=== PATIENT | male | born 1970 | race Two or more races ===

== ENCOUNTER 2024-09-10 09:39 | Inpatient (IN) | payer MEDICARE, OTHER ==
[~2024-09-10] VITALS: Ht 172.7 cm; Wt 85.3 kg
[~2024-09-10 09:39] MED LIST: AMLO2.5T96 PO; ATOR20TA PO; LACT10SO10 PO; MULT-1239 PO; MULT-248 PO; PANT-31 PO; RIFAX550 PO
[2024-09-10 10:00] VITALS: BP 107/69; PULSE 67; RESP 18; TEMP 98.6; O2SAT 100
[2024-09-10] MEDS ORDERED: ACETAMINOPHEN 325 MG TABLET PO PRN (11:00)
[2024-09-10] MEDS ORDERED: DEXTROSE 50%-WATER 25 GM/50 ML SYRINGE IVP PRN (11:15)
[2024-09-10] MEDS ORDERED: INSULIN LISPRO 100 UNITS/ML SQ SCH (11:30)
[2024-09-10] MEDS: INFLUENZA VIRUS VACCINE TVS (6MO+) 2024-25/PF 45 MCG/0.5 ML SYRINGE IM. ONE (13:10)
[2024-09-10] MEDS: PNEUMOCOCCAL VACCINE POLYVALENT 0.5 ML SYRINGE [PPSV23] IM. ONE (13:11)
[2024-09-10] MEDS: LACTULOSE 20 GM/30 ML SOLUTION UDCUP PO SCH (13:11)
[2024-09-10] MEDS: INSULIN LISPRO 100 UNITS/ML SQ PRN (13:12)
[2024-09-10 13:51] LABS: GLUCOMETER DEV NAME(LOC) 2WR.2B; GLUCOSE,POINT OF CARE 159 MG/DL (70-110)
[2024-09-10] MEDS: LANSOPRAZOLE 30 MG CAPSULE PO SCH (16:20)
[2024-09-10 18:20] LABS: GLUCOMETER DEV NAME(LOC) 2WR.1D; GLUCOSE,POINT OF CARE 120 MG/DL (70-110)
[2024-09-10] MEDS: CHOLESTYRAMINE PO SCH (21:05)
[2024-09-10] MEDS: SUCROSE PO SCH (21:05)
[2024-09-10] MEDS: RIFAXIMIN 550 MG TABLET PO SCH (21:06)
[2024-09-10] MEDS: URSODIOL 500 MG TABLET PO SCH (21:06)
[2024-09-10] MEDS: LevETIRAcetam 500 MG TABLET PO SCH (21:06)
[2024-09-10] MEDS: COLD CREAM, SKIN EMOLLIENT 340 GM JAR TP SCH (21:06)
[2024-09-10] MEDS: NYSTATIN 15 GM POWDER BOTTLE TP SCH (21:06)
[2024-09-10 21:09] VITALS: BP 90/53; PULSE 53; RESP 18; TEMP 98.8; O2SAT 98
[2024-09-10 21:16] VITALS: O2SAT 98
[2024-09-10] MEDS: ETHYL ALCOHOL 62% ANTISEPTIC NASAL SANITIZER 0.6 ML AMPUL NASAL SCH (21:32)
[2024-09-10 23:55] LABS: GLUCOMETER DEV NAME(LOC) 2WR.2B; GLUCOSE,POINT OF CARE 149 MG/DL (70-110)
[2024-09-11 07:26] LABS: GLUCOMETER DEV NAME(LOC) 2WR.2B; GLUCOSE,POINT OF CARE 85 MG/DL (70-110)
[2024-09-11] MEDS: PROPRANOLOL HCL 60 MG ER CAPSULE PO SCH (07:39)
[2024-09-11] MEDS: SPIRONOLACTONE 50 MG TABLET PO SCH (07:40)
[2024-09-11] MEDS: FUROSEMIDE 40 MG TABLET PO SCH (07:45)
[2024-09-11] MEDS: ASPIRIN 81 MG CHEWABLE TABLET PO SCH (07:48)
[2024-09-11 08:05] VITALS: BP 109/58; PULSE 66; RESP 19; TEMP 98.3; O2SAT 98
[2024-09-11] MEDS: INSULIN GLARGINE,HUM.REC.ANLOG 100 UNITS/ML SQ SCH (08:32)
[2024-09-11 08:39] LABS: BASOPHILS % (AUTO) 0.2 % (0.0-2.0); EOSINOPHILS % (AUTO) 5.8 % (1.0-6.0); HEMATOCRIT 39.8 % (41-53); HEMOGLOBIN 13.8 g/dL (13.5-17.5); LYMPHOCYTES # (AUTO) 0.9 K/uL (1.0-4.8); MEAN CORPUSCULAR HEMOGLOBIN 38.3 pg (26.0-34.0); MEAN CORPUSCULAR HGB CONC 34.6 G/dL (31.0-37.0); MEAN CORPUSCULAR VOLUME 111 fL (80-100); MONOCYTES # (AUTO) 0.7 K/uL (0.1-1.0); MONOCYTES % (AUTO) 12.6 % (2.0-9.0); NEUTROPHILS # (AUTO) 3.3 K/uL (1.8-7.7); NEUTROPHILS % (AUTO) 64.4 % (40.0-70.0); PLATELET COUNT (AUTO) 77 K/uL (150-450); RED BLOOD CELL COUNT(AUTO) 3.59 MIL/uL (4.50-5.90); RED CELL DISTRIBUTION WIDTH 17.3 % (11.5-14.5); WHITE BLOOD COUNT (AUTO) 5.2 K/uL (4.5-11.0)
[2024-09-11] MEDS ORDERED: INSULIN GLARGINE,HUM.REC.ANLOG 100 UNITS/ML SQ SCH (09:00)
[2024-09-11 09:21] LABS: ALANINE AMINOTRANSFERASE 125 U/L (12-78); ALBUMIN 1.1 g/dL (3.4-5.0); ALKALINE PHOSPHATASE 367 U/L (46-116); ANION GAP 3 mmol/L (8-16); ASPARTATE AMINOTRANSFERASE 143 U/L (15-37); BILIRUBIN,TOTAL 11.7 mg/dL (0.1-1.0); CALCIUM, TOTAL 8.1 mg/dL (8.8-10.5); CARBON DIOXIDE 29 mmol/L (22-29); CHLORIDE 109 mmol/L (98-107); CREATINE KINASE, TOTAL ONLY 101 U/L (39-308); CREATININE 0.65 mg/dL (0.60-1.30); GLOMERULAR FILTR. RATE CALC > 60 mL/min (>60); GLUCOSE,RANDOM 98 mg/dL (70-110); POTASSIUM 4.2 mmol/L (3.5-5.1); SODIUM SERUM 140 mmol/L (136-145); TOTAL PROTEIN, SERUM 6.3 g/dL (6.4-8.2); UREA NITROGEN, BLOOD 9 mg/dL (7-18)
[2024-09-11 11:18] LABS: PROTHROMBIN TIME 24.5 SEC (9.4-11.6)
[2024-09-11 11:40] LABS: GLUCOMETER DEV NAME(LOC) 2WR.2B; GLUCOSE,POINT OF CARE 209 MG/DL (70-110)
[2024-09-11 12:34] VITALS: O2SAT 98
[2024-09-11] MEDS: LACTULOSE 20 GM/30 ML SOLUTION UDCUP PO SCH (16:27)
[2024-09-11 17:21] LABS: GLUCOMETER DEV NAME(LOC) 2WR.2B; GLUCOSE,POINT OF CARE 234 MG/DL (70-110)
[2024-09-11 22:00] LABS: GLUCOMETER DEV NAME(LOC) 2WR.2B; GLUCOSE,POINT OF CARE 213 MG/DL (70-110)
[2024-09-11 22:12] VITALS: BP 93/51; PULSE 53; RESP 18; TEMP 97.6; O2SAT 100
[2024-09-12 03:56] VITALS: O2SAT 100
[2024-09-12 07:05] LABS: GLUCOMETER DEV NAME(LOC) 2WR.2B; GLUCOSE,POINT OF CARE 139 MG/DL (70-110)
[2024-09-12 08:05] VITALS: BP 118/65; PULSE 65; RESP 18; TEMP 98; O2SAT 99
[2024-09-12] MEDS: MULTIVITAMINS WITH MINERALS, THERAPEUTIC TABLET PO SCH (08:05)
[2024-09-12 11:45] LABS: GLUCOMETER DEV NAME(LOC) 2WR.1D; GLUCOSE,POINT OF CARE 186 MG/DL (70-110)
[2024-09-12 13:15] VITALS: O2SAT 98
[2024-09-12 16:01] LABS: GLUCOMETER DEV NAME(LOC) 2WR.1D; GLUCOSE,POINT OF CARE 246 MG/DL (70-110)
[2024-09-12 20:02] VITALS: BP 115/60; PULSE 63; RESP 18; TEMP 98.6; O2SAT 97
[2024-09-12 21:15] LABS: GLUCOMETER DEV NAME(LOC) 2WR.1D; GLUCOSE,POINT OF CARE 159 MG/DL (70-110)
[2024-09-12 21:35] VITALS: O2SAT 97
[2024-09-13 06:45] LABS: GLUCOMETER DEV NAME(LOC) 2WR.1D; GLUCOSE,POINT OF CARE 110 MG/DL (70-110)
[2024-09-13 08:00] VITALS: BP 103/60; PULSE 60; RESP 19; TEMP 98.7; O2SAT 99
[2024-09-13 13:05] LABS: GLUCOMETER DEV NAME(LOC) 2WR.1D; GLUCOSE,POINT OF CARE 154 MG/DL (70-110)
[2024-09-13 17:10] LABS: GLUCOMETER DEV NAME(LOC) 2WR.1D; GLUCOSE,POINT OF CARE 146 MG/DL (70-110)
[2024-09-13 20:03] VITALS: BP 98/58; PULSE 56; RESP 18; TEMP 98.6; O2SAT 97
[2024-09-13 21:56] LABS: GLUCOMETER DEV NAME(LOC) 2WR.1D; GLUCOSE,POINT OF CARE 164 MG/DL (70-110)
[2024-09-13 22:00] VITALS: O2SAT 99
[2024-09-14 06:55] LABS: GLUCOMETER DEV NAME(LOC) 2WR.1D; GLUCOSE,POINT OF CARE 110 MG/DL (70-110)
[2024-09-14 08:05] VITALS: BP 118/64; PULSE 73; RESP 18; TEMP 98; O2SAT 98
[2024-09-14 09:51] VITALS: O2SAT 98
[2024-09-14 11:00] VITALS: BP 110/65; PULSE 68; RESP 18; TEMP 98.4; O2SAT 98
[2024-09-14 11:06] LABS: GLUCOMETER DEV NAME(LOC) 2WR.1D; GLUCOSE,POINT OF CARE 198 MG/DL (70-110)
[2024-09-14 16:36] LABS: GLUCOMETER DEV NAME(LOC) 2WR.1D; GLUCOSE,POINT OF CARE 192 MG/DL (70-110)
[2024-09-14 20:11] VITALS: BP 98/54; PULSE 55; RESP 18; TEMP 98.1; O2SAT 100
[2024-09-14 22:51] LABS: GLUCOMETER DEV NAME(LOC) 2WR.1D; GLUCOSE,POINT OF CARE 186 MG/DL (70-110)
[2024-09-15 06:40] LABS: GLUCOMETER DEV NAME(LOC) 2WR.1D; GLUCOSE,POINT OF CARE 120 MG/DL (70-110)
[2024-09-15 08:00] VITALS: BP 101/56; PULSE 66; RESP 18; TEMP 97.8; O2SAT 98
[2024-09-15 12:06] LABS: GLUCOMETER DEV NAME(LOC) 2WR.1D; GLUCOSE,POINT OF CARE 187 MG/DL (70-110)
[2024-09-15 17:45] LABS: GLUCOMETER DEV NAME(LOC) 2WR.1D; GLUCOSE,POINT OF CARE 163 MG/DL (70-110)
[2024-09-15 20:30] VITALS: BP 99/57; PULSE 63; RESP 18; TEMP 98.2; O2SAT 99
[2024-09-15 22:27] VITALS: O2SAT 99
[2024-09-16 00:41] LABS: GLUCOMETER DEV NAME(LOC) 2WR.1D; GLUCOSE,POINT OF CARE 158 MG/DL (70-110)
[2024-09-16 06:12] LABS: BASOPHILS % (AUTO) 0.4 % (0.0-2.0); EOSINOPHILS % (AUTO) 5.1 % (1.0-6.0); HEMATOCRIT 35.7 % (41-53); HEMOGLOBIN 12.5 g/dL (13.5-17.5); LYMPHOCYTES % (AUTO) 20.1 % (22.0-44.0); MEAN CORPUSCULAR HEMOGLOBIN 38.6 pg (26.0-34.0); MEAN CORPUSCULAR HGB CONC 35.1 G/dL (31.0-37.0); MEAN CORPUSCULAR VOLUME 110 fL (80-100); MONOCYTES # (AUTO) 0.7 K/uL (0.1-1.0); NEUTROPHILS # (AUTO) 3.1 K/uL (1.8-7.7); NEUTROPHILS % (AUTO) 61.4 % (40.0-70.0); PLATELET COUNT (AUTO) 75 K/uL (150-450); RED BLOOD CELL COUNT(AUTO) 3.25 MIL/uL (4.50-5.90); RED CELL DISTRIBUTION WIDTH 16.9 % (11.5-14.5); WHITE BLOOD COUNT (AUTO) 5.1 K/uL (4.5-11.0)
[2024-09-16 06:20] LABS: ANION GAP 6 mmol/L (8-16); CALCIUM, TOTAL 7.9 mg/dL (8.8-10.5); CARBON DIOXIDE 25 mmol/L (22-29); CHLORIDE 106 mmol/L (98-107); CREATININE 0.74 mg/dL (0.60-1.30); GLOMERULAR FILTR. RATE CALC > 60 mL/min (>60); GLUCOSE,RANDOM 100 mg/dL (70-110); POTASSIUM 3.8 mmol/L (3.5-5.1); SODIUM SERUM 137 mmol/L (136-145); UREA NITROGEN, BLOOD 9 mg/dL (7-18)
[2024-09-16 06:21] LABS: HEMOGLOBIN A1C 6.7 % (3.8-5.6)
[2024-09-16 06:31] LABS: GLUCOMETER DEV NAME(LOC) 2WR.1D; GLUCOSE,POINT OF CARE 102 MG/DL (70-110)
[2024-09-16 07:39] LABS: RBC MORPHOLOGY COMMENT ABNORMAL RBC MORPH
[2024-09-16] MEDS: SPIRONOLACTONE 25 MG TABLET PO SCH (07:53)
[2024-09-16 08:05] VITALS: BP 118/63; PULSE 68; RESP 18; TEMP 98.2; O2SAT 98
[2024-09-16 10:24] VITALS: O2SAT 98
[2024-09-16 12:20] LABS: GLUCOMETER DEV NAME(LOC) 2WR.1D; GLUCOSE,POINT OF CARE 163 MG/DL (70-110)
[2024-09-16 16:40] LABS: GLUCOMETER DEV NAME(LOC) 2WR.1D; GLUCOSE,POINT OF CARE 141 MG/DL (70-110)
[2024-09-16 19:39] VITALS: BP 94/58; PULSE 61; RESP 18; TEMP 98.1; O2SAT 100
[2024-09-16 21:35] LABS: GLUCOMETER DEV NAME(LOC) 2WR.1D; GLUCOSE,POINT OF CARE 185 MG/DL (70-110)
[2024-09-17 00:36] VITALS: O2SAT 100
[2024-09-17 06:45] LABS: GLUCOMETER DEV NAME(LOC) 2WR.2B; GLUCOSE,POINT OF CARE 97 MG/DL (70-110)
[2024-09-17 08:00] VITALS: BP 102/62; PULSE 64; RESP 18; TEMP 98.4; O2SAT 98
[2024-09-17 08:15] VITALS: BP 100/58; PULSE 64; RESP 18
[2024-09-17 09:45] VITALS: BP 97/55; PULSE 55; RESP 18
[2024-09-17 11:55] LABS: GLUCOMETER DEV NAME(LOC) 2WR.1D; GLUCOSE,POINT OF CARE 201 MG/DL (70-110)
[2024-09-17 17:11] LABS: GLUCOMETER DEV NAME(LOC) 2WR.2B; GLUCOSE,POINT OF CARE 135 MG/DL (70-110)
[2024-09-17 20:00] VITALS: BP 100/56; PULSE 66; RESP 18; TEMP 98; O2SAT 96
[2024-09-17 23:01] LABS: GLUCOMETER DEV NAME(LOC) 2WR.1D; GLUCOSE,POINT OF CARE 236 MG/DL (70-110)
[2024-09-18 07:11] LABS: GLUCOMETER DEV NAME(LOC) 2WR.2B; GLUCOSE,POINT OF CARE 101 MG/DL (70-110)
[2024-09-18 07:30] VITALS: BP 107/58; PULSE 68; RESP 18; TEMP 98.1; O2SAT 100
[2024-09-18 08:00] VITALS: O2SAT 100
[2024-09-18 08:10] VITALS: BP 100/57; PULSE 63; RESP 18
[2024-09-18] MEDS: MetFORMIN HCL 500 MG TABLET PO SCH (08:53)
[2024-09-18 12:15] LABS: GLUCOMETER DEV NAME(LOC) 2WR.1D; GLUCOSE,POINT OF CARE 196 MG/DL (70-110)
[2024-09-18 18:16] LABS: GLUCOMETER DEV NAME(LOC) 2WR.1D; GLUCOSE,POINT OF CARE 188 MG/DL (70-110)
[2024-09-18 20:00] VITALS: BP 100/58; PULSE 74; RESP 18; TEMP 98.2; O2SAT 99
[2024-09-18 21:45] LABS: GLUCOMETER DEV NAME(LOC) 2WR.2B; GLUCOSE,POINT OF CARE 162 MG/DL (70-110)
[2024-09-19 07:15] LABS: GLUCOMETER DEV NAME(LOC) 2WR.1D; GLUCOSE,POINT OF CARE 76 MG/DL (70-110)
[2024-09-19 08:11] VITALS: BP 103/56; PULSE 70; RESP 18; TEMP 98.2; O2SAT 97
[2024-09-19 12:30] LABS: GLUCOMETER DEV NAME(LOC) 2WR.1D; GLUCOSE,POINT OF CARE 193 MG/DL (70-110)
[2024-09-19 17:21] LABS: GLUCOMETER DEV NAME(LOC) 2WR.2B; GLUCOSE,POINT OF CARE 107 MG/DL (70-110)
[2024-09-19 20:20] VITALS: BP 89/47; PULSE 57; RESP 18; TEMP 98.6; O2SAT 98
[2024-09-19 20:30] VITALS: BP 90/57; PULSE 61
[2024-09-19 22:11] LABS: GLUCOMETER DEV NAME(LOC) 2WR.2B; GLUCOSE,POINT OF CARE 113 MG/DL (70-110)
[2024-09-19 23:49] VITALS: O2SAT 98
[2024-09-20 07:06] LABS: GLUCOMETER DEV NAME(LOC) 2WR.2B; GLUCOSE,POINT OF CARE 93 MG/DL (70-110)
[2024-09-20 08:00] VITALS: BP 98/62; PULSE 60; RESP 18; TEMP 97.9; O2SAT 98
[2024-09-20 11:36] LABS: GLUCOMETER DEV NAME(LOC) 2WR.1D; GLUCOSE,POINT OF CARE 142 MG/DL (70-110)
[2024-09-20 11:48] LABS: BASOPHILS % (AUTO) 0.2 % (0.0-2.0); EOSINOPHILS % (AUTO) 3.8 % (1.0-6.0); HEMATOCRIT 37.6 % (41-53); HEMOGLOBIN 12.8 g/dL (13.5-17.5); LYMPHOCYTES % (AUTO) 16.1 % (22.0-44.0); MEAN CORPUSCULAR HEMOGLOBIN 38.1 pg (26.0-34.0); MEAN CORPUSCULAR HGB CONC 34.1 G/dL (31.0-37.0); MEAN CORPUSCULAR VOLUME 112 fL (80-100); MONOCYTES # (AUTO) 0.9 K/uL (0.1-1.0); MONOCYTES % (AUTO) 14.9 % (2.0-9.0); NEUTROPHILS # (AUTO) 4.1 K/uL (1.8-7.7); PLATELET COUNT (AUTO) 72 K/uL (150-450); RED BLOOD CELL COUNT(AUTO) 3.37 MIL/uL (4.50-5.90); RED CELL DISTRIBUTION WIDTH 17.4 % (11.5-14.5); WHITE BLOOD COUNT (AUTO) 6.3 K/uL (4.5-11.0)
[2024-09-20 11:50] LABS: RBC MORPHOLOGY COMMENT ABNORMAL RBC MORPH
[2024-09-20 12:17] LABS: ALANINE AMINOTRANSFERASE 62 U/L (12-78); ALKALINE PHOSPHATASE 271 U/L (46-116); ANION GAP 3 mmol/L (8-16); ASPARTATE AMINOTRANSFERASE 95 U/L (15-37); BILIRUBIN,TOTAL 12.9 mg/dL (0.1-1.0); CALCIUM, TOTAL 8.2 mg/dL (8.8-10.5); CARBON DIOXIDE 26 mmol/L (22-29); CHLORIDE 105 mmol/L (98-107); CREATININE 0.89 mg/dL (0.60-1.30); GLOMERULAR FILTR. RATE CALC > 60 mL/min (>60); GLUCOSE,RANDOM 133 mg/dL (70-110); POTASSIUM 4.3 mmol/L (3.5-5.1); SODIUM SERUM 134 mmol/L (136-145); TOTAL PROTEIN, SERUM 5.9 g/dL (6.4-8.2); UREA NITROGEN, BLOOD 8 mg/dL (7-18)
[2024-09-20 18:00] LABS: GLUCOMETER DEV NAME(LOC) 2WR.2B; GLUCOSE,POINT OF CARE 94 MG/DL (70-110)
[2024-09-20 20:00] VITALS: BP 103/56; PULSE 64; RESP 18; TEMP 98.1; O2SAT 98
[2024-09-21 03:10] LABS: GLUCOMETER DEV NAME(LOC) 2WR.1D; GLUCOSE,POINT OF CARE 98 MG/DL (70-110)
[2024-09-21] MEDS ORDERED: METF-1211 PO ×2 (04:34→10:08)
[2024-09-21] MEDS ORDERED: SPIR-37 PO ×2 (04:34→10:08)
[2024-09-21] MEDS ORDERED: LACT10SO10 PO ×2 (04:35→10:08)
[2024-09-21] MEDS ORDERED: INSLAN SQ ×2 (04:37→10:08)
[2024-09-21] MEDS ORDERED: PROP60CA38 PO (04:39)
[2024-09-21] MEDS ORDERED: FURO40TA6 PO (04:40)
[2024-09-21] MEDS ORDERED: ALBO180CR TP (04:40)
[2024-09-21] MEDS ORDERED: CHOL4PAC8 PO ×2 (04:42→10:08)
[2024-09-21] MEDS ORDERED: URSO500T10 PO (04:42)
[2024-09-21] MEDS ORDERED: LEVE-71 PO ×2 (04:44→10:08)
[2024-09-21] MEDS ORDERED: LANS-78 PO ×2 (04:45→10:08)
[2024-09-21] MEDS ORDERED: NYST15PO3 TP (04:45)
[2024-09-21 07:20] LABS: GLUCOMETER DEV NAME(LOC) 2WR.1D; GLUCOSE,POINT OF CARE 134 MG/DL (70-110)
[2024-09-21 08:05] VITALS: BP 118/64; PULSE 73; RESP 18; TEMP 98.2; O2SAT 98
[2024-09-21] MEDS ORDERED: INSU100V SQ (10:08)
[2024-09-21] MEDS ORDERED: URSO500T5 PO (10:08)
[2024-09-21] MEDS ORDERED: RIFAX550 PO (10:08)
[2024-09-21] MEDS ORDERED: MULT-1303 PO (10:08)
[2024-09-21] MEDS ORDERED: FURO40TA5 PO (10:08)
[2024-09-21] MEDS ORDERED: PROP60CA31 PO (10:08)
[2024-09-21 10:30] VITALS: O2SAT 98
[2024-09-21 12:10] LABS: GLUCOMETER DEV NAME(LOC) 2WR.2B; GLUCOSE,POINT OF CARE 134 MG/DL (70-110)
== END 2024-09-21 12:48 | disposition home health service (06) | DRG 57 ==
LOC: 2WR 09:53
PROVIDERS: ADMIT Physical Medicine & Rehabilitation; ATTEND Physical Medicine & Rehabilitation
DX: I69.354 Hemiplegia and hemiparesis following cerebral infarction affecting left non-dominant side (principal); D68.9 Coagulation defect, unspecified; E46 Unspecified protein-calorie malnutrition; E87.1 Hypo-osmolality and hyponatremia; R53.1 Weakness; G40.909 Epilepsy, unspecified, not intractable, without status epilepticus; K74.60 Unspecified cirrhosis of liver; Z79.4 Long term (current) use of insulin; E11.9 Type 2 diabetes mellitus without complications; M48.061 Spinal stenosis, lumbar region without neurogenic claudication; K76.82 Hepatic encephalopathy; D53.9 Nutritional anemia, unspecified; I10 Essential (primary) hypertension; F32.A Depression, unspecified; K76.9 Liver disease, unspecified; R41.89 Other symptoms and signs involving cognitive functions and awareness; R53.81 Other malaise; E78.5 Hyperlipidemia, unspecified; D69.6 Thrombocytopenia, unspecified; Z74.09 Other reduced mobility; F43.10 Post-traumatic stress disorder, unspecified; K75.81 Nonalcoholic steatohepatitis (NASH); Z74.1 Need for assistance with personal care; Z79.82 Long term (current) use of aspirin; Z82.49 Family history of ischemic heart disease and other diseases of the circulatory system; Z83.3 Family history of diabetes mellitus; Z68.28 Body mass index [BMI] 28.0-28.9, adult; D63.8 Anemia in other chronic diseases classified elsewhere
CPT/HCPCS: 76705; 80048; 80053; 82140; 82550; 82962; 83036; 83735; 85025; 85610; 87081; 87481; 92507; 92523; 93970; 97110; 97112; 97116; 97163; 97167; 97530; 97535; 99366; J1815

== ENCOUNTER 2024-09-29 21:30 | Inpatient (IN) | payer MEDICARE, OTHER ==
[~2024-09-29] VITALS: Ht 167.6 cm; Wt 82.9 kg
[~2024-09-29 21:30] MED LIST changes: -AMLO2.5T96 PO; -ATOR20TA PO; +CHOL4PAC8 PO; +FURO40TA5 PO; +FURO40TA6 PO; +INSLAN SQ; +INSU100V SQ; +LANS-78 PO; +LEVE-71 PO; +METF-1211 PO; +MULT-1303 PO; -MULT-248 PO; +NYST15PO3 TP; -PANT-31 PO; +PROP60CA31 PO; +PROP60CA38 PO; +SPIR-37 PO; +URSO500T10 PO; +URSO500T5 PO
[2024-09-29] MEDS ORDERED: IOHEXOL 350 MG/ML 100 ML VIAL ONE (22:00)
[2024-09-29] MEDS ORDERED: SODIUM CHLORIDE 0.9% 100 ML ONE (22:00)
[2024-09-29] MEDS ORDERED: 0.9% SODIUM CHLORIDE 10 ML SYRINGE IVP ONE (22:01)
[2024-09-29 22:17] LABS: BASOPHILS % (AUTO) 0.3 % (0.0-2.0); EOSINOPHILS % (AUTO) 1.9 % (1.0-6.0); HEMATOCRIT 35.4 % (41-53); HEMOGLOBIN 12.3 g/dL (13.5-17.5); LYMPHOCYTES # (AUTO) 0.9 K/uL (1.0-4.8); LYMPHOCYTES % (AUTO) 11.5 % (22.0-44.0); MEAN CORPUSCULAR HGB CONC 34.6 G/dL (31.0-37.0); MEAN CORPUSCULAR VOLUME 110 fL (80-100); MONOCYTES # (AUTO) 1.1 K/uL (0.1-1.0); NEUTROPHILS % (AUTO) 73.3 % (40.0-70.0); RED BLOOD CELL COUNT(AUTO) 3.23 MIL/uL (4.50-5.90); RED CELL DISTRIBUTION WIDTH 16.9 % (11.5-14.5); WHITE BLOOD COUNT (AUTO) 8.2 K/uL (4.5-11.0)
[2024-09-29 22:23] LABS: ANION GAP 5 mmol/L (8-16); CALCIUM, TOTAL 8.3 mg/dL (8.8-10.5); CARBON DIOXIDE 24 mmol/L (22-29); CHLORIDE 104 mmol/L (98-107); CREATININE 0.87 mg/dL (0.60-1.30); GLOMERULAR FILTR. RATE CALC > 60 mL/min (>60); GLUCOSE,RANDOM 271 mg/dL (70-110); POTASSIUM 5.8 mmol/L (3.5-5.1); SODIUM SERUM 133 mmol/L (136-145); UREA NITROGEN, BLOOD 12 mg/dL (7-18)
[2024-09-29 22:28] LABS: ALANINE AMINOTRANSFERASE 47 U/L (12-78); ALBUMIN 1.1 g/dL (3.4-5.0); ALKALINE PHOSPHATASE 358 U/L (46-116); ASPARTATE AMINOTRANSFERASE 118 U/L (15-37); BILIRUBIN,TOTAL 15.3 mg/dL (0.1-1.0); TOTAL PROTEIN, SERUM 6.4 g/dL (6.4-8.2)
[2024-09-29 22:32] LABS: TROPONIN I-HIGH SENSITIVITY 7 ng/L (<76)
[2024-09-29 22:36] LABS: PROTHROMBIN TIME 23.8 SEC (9.4-11.6)
[2024-09-29 22:37] LABS: PLATELET COUNT (AUTO) 90 K/uL (150-450); RBC MORPHOLOGY COMMENT ABNORMAL RBC MORPH
[2024-09-29 23:11] LABS: APPEARANCE,URINE CLEAR (CLEAR); BILIRUBIN,URINE LARGE (NEGATIVE); COLOR,URINE DARK YELLOW (YELLOW); GLUCOSE, URINE (UA) >=1000 mg/dL (NEGATIVE); KETONES,URINE NEGATIVE (NEGATIVE); LEUKOCYTE ESTERASE ,URINE NEGATIVE (NEGATIVE); NITRATE,URINE NEGATIVE (NEGATIVE); OCCULT BLOOD,URINE TRACE (NEGATIVE); PH,URINE 6.5 (5.0-8.0); PH,URINE DRUG SCREEN 6.5 (5.0-8.0); PROTEIN,URINE NEGATIVE (NEGATIVE); SPECIFIC GRAVITIY, URINE 1.037 (1.003-1.030); UROBILINOGEN,URINE <=1.0 mg/dL (<=1.0)
[2024-09-29 23:22] LABS: ALCOHOL, URINE DRUG SCREEN NEGATIVE (NEGATIVE); AMPHET/METH SCREEN,URINE NEGATIVE (NEGATIVE); BARBITURATE SCREEN, URINE NEGATIVE (NEGATIVE); BENZODIAZEPINES SCREEN,URINE NEGATIVE (NEGATIVE); CANNABINOID SCREEN,URINE NEGATIVE (NEGATIVE); COCAINE SCREEN,URINE NEGATIVE (NEGATIVE); METHADONE SCREEN, URINE NEGATIVE (NEGATIVE); OPIATE SCREEN,URINE NEGATIVE (NEGATIVE); PHENCYCLIDINE SCREEN,URINE NEGATIVE (NEGATIVE)
[2024-09-29 23:24] LABS: BACTERIA,URINE Few /HPF (None Seen); SQUAMOUS EPITHELIAL CELL,UR Few /LPF (None Seen); WBC,URINE 0-2 /HPF (0-5)
[2024-09-29] MEDS ORDERED: OxyCODONE HCL/ACETAMINOPHEN 5-325 MG TABLET PO PRN ×2 (23:45)
[2024-09-29] MEDS ORDERED: ONDANSETRON HCL 4 MG/2 ML VIAL IVP PRN (23:45)
[2024-09-29] MEDS ORDERED: 0.9% SODIUM CHLORIDE 10 ML SYRINGE IVP PRN (23:45)
[2024-09-30] MEDS: LACTULOSE 20 GM/30 ML SOLUTION UDCUP PO ONE (00:38)
[2024-09-30] MEDS: LACTULOSE 200 GM/300 ML RECTAL SOLUTION PR ONE (00:38)
[2024-09-30] MEDS: SODIUM ZIRCONIUM CYCLOSILICATE 5 GM POWDER PACKET PO ONE (00:38)
[2024-09-30 04:22] LABS: BASOPHILS % (AUTO) 0.3 % (0.0-2.0); EOSINOPHILS % (AUTO) 1.7 % (1.0-6.0); HEMATOCRIT 36.8 % (41-53); HEMOGLOBIN 12.9 g/dL (13.5-17.5); LYMPHOCYTES % (AUTO) 11.4 % (22.0-44.0); MEAN CORPUSCULAR HEMOGLOBIN 38.2 pg (26.0-34.0); MEAN CORPUSCULAR HGB CONC 35.2 G/dL (31.0-37.0); MEAN CORPUSCULAR VOLUME 109 fL (80-100); MONOCYTES # (AUTO) 0.8 K/uL (0.1-1.0); MONOCYTES % (AUTO) 9.7 % (2.0-9.0); NEUTROPHILS # (AUTO) 6.7 K/uL (1.8-7.7); NEUTROPHILS % (AUTO) 76.9 % (40.0-70.0); PLATELET COUNT (AUTO) 83 K/uL (150-450); RED BLOOD CELL COUNT(AUTO) 3.39 MIL/uL (4.50-5.90); RED CELL DISTRIBUTION WIDTH 16.8 % (11.5-14.5); WHITE BLOOD COUNT (AUTO) 8.7 K/uL (4.5-11.0)
[2024-09-30 04:30] LABS: ANION GAP 5 mmol/L (8-16); CALCIUM, TOTAL 8.2 mg/dL (8.8-10.5); CARBON DIOXIDE 24 mmol/L (22-29); CHLORIDE 105 mmol/L (98-107); CREATININE 0.85 mg/dL (0.60-1.30); GLOMERULAR FILTR. RATE CALC > 60 mL/min (>60); GLUCOSE,RANDOM 240 mg/dL (70-110); SODIUM SERUM 134 mmol/L (136-145); UREA NITROGEN, BLOOD 11 mg/dL (7-18)
[2024-09-30 04:45] LABS: TROPONIN I-HIGH SENSITIVITY 10 ng/L (<76)
[2024-09-30 04:55] LABS: RBC MORPHOLOGY COMMENT ABNORMAL RBC MORPH
[2024-09-30 08:45] VITALS: BP 101/49; PULSE 89; RESP 18; TEMP 98.2; O2SAT 100
[2024-09-30] MEDS: DOCUSATE SODIUM 100 MG CAPSULE PO SCH (09:00)
[2024-09-30] MEDS: PANTOPRAZOLE SODIUM 40 MG/VIAL IVP SCH (10:11)
[2024-09-30] MEDS: LACTULOSE 20 GM/30 ML SOLUTION UDCUP PO SCH (10:12)
[2024-09-30 10:27] LABS: TROPONIN I-HIGH SENSITIVITY 11 ng/L (<76)
[2024-09-30 11:15] VITALS: BP 109/74; PULSE 97; RESP 18; TEMP 98; O2SAT 95
[2024-09-30 15:24] VITALS: BP 116/64; PULSE 84; RESP 19; TEMP 97.8; O2SAT 99
[2024-09-30 20:08] VITALS: BP 115/48; PULSE 81; RESP 18; TEMP 97.9; O2SAT 97
[2024-10-01 00:25] VITALS: BP 104/62; PULSE 66; RESP 18; TEMP 98; O2SAT 100
[2024-10-01 05:24] VITALS: BP_SYST 112; BP_DIAS 62; BP_DIAS 66; PULSE 72; RESP 18; TEMP 98.1; O2SAT 99
[2024-10-01 07:40] VITALS: BP 101/56; PULSE 69; RESP 19; TEMP 97.8; O2SAT 99
[2024-10-01 11:40] VITALS: BP 101/56; PULSE 75; RESP 19; TEMP 98; O2SAT 96
[2024-10-01 14:08] LABS: BAND NEUTROPHILS % (MANUAL) 0 % (0-5)
[2024-10-01 14:12] LABS: HEMATOCRIT 36.5 % (41-53); HEMOGLOBIN 12.6 g/dL (13.5-17.5); MEAN CORPUSCULAR HEMOGLOBIN 37.5 pg (26.0-34.0); MEAN CORPUSCULAR HGB CONC 34.6 G/dL (31.0-37.0); MEAN CORPUSCULAR VOLUME 108 fL (80-100); PLATELET COUNT (AUTO) 73 K/uL (150-450); RED BLOOD CELL COUNT(AUTO) 3.37 MIL/uL (4.50-5.90); RED CELL DISTRIBUTION WIDTH 17.4 % (11.5-14.5); WHITE BLOOD COUNT (AUTO) 7.5 K/uL (4.5-11.0)
[2024-10-01 14:25] LABS: ALANINE AMINOTRANSFERASE 43 U/L (12-78); ALKALINE PHOSPHATASE 283 U/L (46-116); ANION GAP 5 mmol/L (8-16); ASPARTATE AMINOTRANSFERASE 94 U/L (15-37); BILIRUBIN,TOTAL 13.1 mg/dL (0.1-1.0); CALCIUM, TOTAL 8.4 mg/dL (8.8-10.5); CARBON DIOXIDE 24 mmol/L (22-29); CHLORIDE 108 mmol/L (98-107); CREATININE 0.83 mg/dL (0.60-1.30); GLOMERULAR FILTR. RATE CALC > 60 mL/min (>60); GLUCOSE,RANDOM 84 mg/dL (70-110); POTASSIUM 3.6 mmol/L (3.5-5.1); SODIUM SERUM 137 mmol/L (136-145); TOTAL PROTEIN, SERUM 5.8 g/dL (6.4-8.2); UREA NITROGEN, BLOOD 15 mg/dL (7-18)
[2024-10-01 15:09] LABS: EOSINOPHILS % (MANUAL) 3 % (1-6); LYMPHOCYTES % (MANUAL) 9 % (22-44); MONOCYTES % (MANUAL) 8 % (2-9); PLATELET MORPHOLOGY COMMENT LARGE PLTS PRESENT; SEGMENTED NEUTROPHILS % 80 % (40-70); TOTAL CELLS COUNTED 100
[2024-10-01 15:41] VITALS: BP 98/47; PULSE 68; RESP 18; TEMP 97.9; O2SAT 98
[2024-10-01 20:54] VITALS: BP 119/69; PULSE 71; RESP 18; TEMP 97.6; O2SAT 97
[2024-10-02] VITALS (8 sets, daily range): BP systolic 92–119; BP diastolic 45–71; PULSE 70–76; RESP 16–20; TEMP 97.6–98.3; O2SAT 96–100
[2024-10-02 06:31] LABS: BASOPHILS % (AUTO) 0.7 % (0.0-2.0); EOSINOPHILS % (AUTO) 2.3 % (1.0-6.0); HEMATOCRIT 37.8 % (41-53); HEMOGLOBIN 13.1 g/dL (13.5-17.5); LYMPHOCYTES % (AUTO) 13.8 % (22.0-44.0); MEAN CORPUSCULAR HEMOGLOBIN 37.7 pg (26.0-34.0); MEAN CORPUSCULAR HGB CONC 34.6 G/dL (31.0-37.0); MEAN CORPUSCULAR VOLUME 109 fL (80-100); MONOCYTES # (AUTO) 1.1 K/uL (0.1-1.0); MONOCYTES % (AUTO) 15.6 % (2.0-9.0); NEUTROPHILS # (AUTO) 4.9 K/uL (1.8-7.7); NEUTROPHILS % (AUTO) 67.6 % (40.0-70.0); PLATELET COUNT (AUTO) 71 K/uL (150-450); RED BLOOD CELL COUNT(AUTO) 3.47 MIL/uL (4.50-5.90); RED CELL DISTRIBUTION WIDTH 17.5 % (11.5-14.5); WHITE BLOOD COUNT (AUTO) 7.2 K/uL (4.5-11.0)
[2024-10-02 06:42] LABS: ALANINE AMINOTRANSFERASE 49 U/L (12-78); ALKALINE PHOSPHATASE 303 U/L (46-116); ANION GAP 8 mmol/L (8-16); ASPARTATE AMINOTRANSFERASE 118 U/L (15-37); BILIRUBIN,TOTAL 13.3 mg/dL (0.1-1.0); CALCIUM, TOTAL 8.6 mg/dL (8.8-10.5); CARBON DIOXIDE 23 mmol/L (22-29); CHLORIDE 110 mmol/L (98-107); CREATININE 0.96 mg/dL (0.60-1.30); GLOMERULAR FILTR. RATE CALC > 60 mL/min (>60); GLUCOSE,RANDOM 64 mg/dL (70-110); POTASSIUM 3.5 mmol/L (3.5-5.1); SODIUM SERUM 141 mmol/L (136-145); UREA NITROGEN, BLOOD 17 mg/dL (7-18)
[2024-10-02 11:28] LABS: GLUCOMETER DEV NAME(LOC) 5N.1D; GLUCOSE,POINT OF CARE 227 MG/DL (70-110)
[2024-10-02 11:28] LABS: GLUCOMETER DEV NAME(LOC) 5N.1D; GLUCOSE,POINT OF CARE 182 MG/DL (70-110)
[2024-10-02] MEDS: DEXTROSE 50%-WATER 25 GM/50 ML SYRINGE IVP PRN (20:55)
[2024-10-03] VITALS (8 sets, daily range): BP systolic 100–130; BP diastolic 48–63; PULSE 57–82; RESP 16–19; TEMP 97.8–98.2; O2SAT 94–100
[2024-10-03 10:49] LABS: BASOPHILS % (AUTO) 0.2 % (0.0-2.0); EOSINOPHILS % (AUTO) 2.7 % (1.0-6.0); HEMATOCRIT 38.4 % (41-53); LYMPHOCYTES # (AUTO) 0.8 K/uL (1.0-4.8); LYMPHOCYTES % (AUTO) 10.3 % (22.0-44.0); MEAN CORPUSCULAR HEMOGLOBIN 37.1 pg (26.0-34.0); MEAN CORPUSCULAR VOLUME 109 fL (80-100); MONOCYTES # (AUTO) 0.9 K/uL (0.1-1.0); MONOCYTES % (AUTO) 11.5 % (2.0-9.0); NEUTROPHILS # (AUTO) 5.9 K/uL (1.8-7.7); NEUTROPHILS % (AUTO) 75.3 % (40.0-70.0); PLATELET COUNT (AUTO) 75 K/uL (150-450); RED BLOOD CELL COUNT(AUTO) 3.52 MIL/uL (4.50-5.90); RED CELL DISTRIBUTION WIDTH 17.8 % (11.5-14.5); WHITE BLOOD COUNT (AUTO) 7.9 K/uL (4.5-11.0)
[2024-10-03 11:48] LABS: ALANINE AMINOTRANSFERASE 58 U/L (12-78); ALBUMIN 1.1 g/dL (3.4-5.0); ALKALINE PHOSPHATASE 307 U/L (46-116); ANION GAP 6 mmol/L (8-16); ASPARTATE AMINOTRANSFERASE 141 U/L (15-37); CALCIUM, TOTAL 8.3 mg/dL (8.8-10.5); CARBON DIOXIDE 25 mmol/L (22-29); CHLORIDE 111 mmol/L (98-107); CREATININE 1.02 mg/dL (0.60-1.30); GLOMERULAR FILTR. RATE CALC > 60 mL/min (>60); GLUCOSE,RANDOM 105 mg/dL (70-110); POTASSIUM 3.4 mmol/L (3.5-5.1); SODIUM SERUM 142 mmol/L (136-145); UREA NITROGEN, BLOOD 15 mg/dL (7-18)
[2024-10-03] MEDS ORDERED: MULT-1303 PO (17:29)
[2024-10-03] MEDS: LACTULOSE 20 GM/30 ML SOLUTION UDCUP PO SCH (20:48)
[2024-10-03] MEDS: INSULIN LISPRO 100 UNITS/ML SQ PRN (21:34)
[2024-10-04] VITALS: BP 117/62; PULSE 68; RESP 18; TEMP 98.2; O2SAT 100
[2024-10-04] MEDS: POTASSIUM CHLORIDE 20 MEQ ER TABLET PO ONE (01:05)
[2024-10-04 04:00] VITALS: BP 111/60; PULSE 64; RESP 17; TEMP 98.1; O2SAT 99
[2024-10-04 07:27] LABS: ANION GAP 5 mmol/L (8-16); CALCIUM, TOTAL 8.3 mg/dL (8.8-10.5); CARBON DIOXIDE 25 mmol/L (22-29); CHLORIDE 111 mmol/L (98-107); GLOMERULAR FILTR. RATE CALC > 60 mL/min (>60); GLUCOSE,RANDOM 104 mg/dL (70-110); POTASSIUM 4.1 mmol/L (3.5-5.1); SODIUM SERUM 141 mmol/L (136-145); UREA NITROGEN, BLOOD 13 mg/dL (7-18)
[2024-10-04 08:00] VITALS: BP 109/65; PULSE 66; RESP 18; TEMP 97.8; O2SAT 97
[2024-10-04] MEDS: SPIRONOLACTONE 25 MG TABLET PO SCH (08:37)
[2024-10-04 08:52] LABS: BASOPHILS % (AUTO) 0.3 % (0.0-2.0); EOSINOPHILS % (AUTO) 3.3 % (1.0-6.0); HEMATOCRIT 38.1 % (41-53); LYMPHOCYTES % (AUTO) 13.6 % (22.0-44.0); MEAN CORPUSCULAR HEMOGLOBIN 37.6 pg (26.0-34.0); MEAN CORPUSCULAR HGB CONC 34.2 G/dL (31.0-37.0); MEAN CORPUSCULAR VOLUME 110 fL (80-100); MONOCYTES # (AUTO) 0.9 K/uL (0.1-1.0); MONOCYTES % (AUTO) 12.8 % (2.0-9.0); PLATELET COUNT (AUTO) 66 K/uL (150-450); RED BLOOD CELL COUNT(AUTO) 3.47 MIL/uL (4.50-5.90); RED CELL DISTRIBUTION WIDTH 17.4 % (11.5-14.5); WHITE BLOOD COUNT (AUTO) 7.2 K/uL (4.5-11.0)
[2024-10-04 08:53] LABS: RBC MORPHOLOGY COMMENT ABNORMAL RBC MORPH
[2024-10-04 12:00] VITALS: BP 117/61; PULSE 69; RESP 18; TEMP 97.9; O2SAT 96
[2024-10-04] MEDS: RIFAXIMIN 550 MG TABLET PO SCH (13:07)
[2024-10-04 16:00] VITALS: BP 110/70; PULSE 95; RESP 18; TEMP 97.5; O2SAT 98
[2024-10-04 20:04] VITALS: BP 110/64; PULSE 67; RESP 18; TEMP 98.9; O2SAT 99
[2024-10-05] VITALS (7 sets, daily range): BP systolic 105–119; BP diastolic 55–76; PULSE 60–71; RESP 16–18; TEMP 98–98.2; O2SAT 96–98
[2024-10-05 01:46] LABS: GLUCOMETER DEV NAME(LOC) 5N.1D; GLUCOSE,POINT OF CARE 92 MG/DL (70-110)
[2024-10-05 05:46] LABS: GLUCOMETER DEV NAME(LOC) 5S.1D; GLUCOSE,POINT OF CARE 78 MG/DL (70-110)
[2024-10-05 05:46] LABS: GLUCOMETER DEV NAME(LOC) 5S.1D; GLUCOSE,POINT OF CARE 58 MG/DL (70-110)
[2024-10-05 05:46] LABS: GLUCOMETER DEV NAME(LOC) 5S.1D; GLUCOSE,POINT OF CARE 77 MG/DL (70-110)
[2024-10-05 05:47] LABS: GLUCOMETER DEV NAME(LOC) 5S.1D; GLUCOSE,POINT OF CARE 91 MG/DL (70-110)
[2024-10-05 05:47] LABS: GLUCOMETER DEV NAME(LOC) 5S.1D; GLUCOSE,POINT OF CARE 113 MG/DL (70-110)
[2024-10-05 06:44] LABS: ALANINE AMINOTRANSFERASE 62 U/L (12-78); ALKALINE PHOSPHATASE 314 U/L (46-116); ANION GAP 8 mmol/L (8-16); ASPARTATE AMINOTRANSFERASE 155 U/L (15-37); BILIRUBIN,TOTAL 12.7 mg/dL (0.1-1.0); CALCIUM, TOTAL 7.9 mg/dL (8.8-10.5); CARBON DIOXIDE 24 mmol/L (22-29); CHLORIDE 107 mmol/L (98-107); CREATININE 1.12 mg/dL (0.60-1.30); GLOMERULAR FILTR. RATE CALC > 60 mL/min (>60); GLUCOSE,RANDOM 145 mg/dL (70-110); POTASSIUM 3.8 mmol/L (3.5-5.1); SODIUM SERUM 139 mmol/L (136-145); TOTAL PROTEIN, SERUM 5.8 g/dL (6.4-8.2); UREA NITROGEN, BLOOD 12 mg/dL (7-18)
[2024-10-05 18:26] LABS: GLUCOMETER DEV NAME(LOC) 5S.1D; GLUCOSE,POINT OF CARE 131 MG/DL (70-110)
[2024-10-05 20:21] LABS: GLUCOMETER DEV NAME(LOC) 5S.2D; GLUCOSE,POINT OF CARE 102 MG/DL (70-110)
[2024-10-05 20:21] LABS: GLUCOMETER DEV NAME(LOC) 5S.2D; GLUCOSE,POINT OF CARE 92 MG/DL (70-110)
[2024-10-06 04:14] VITALS: BP 107/65; PULSE 60; RESP 18; TEMP 98; O2SAT 97
[2024-10-06 07:15] LABS: ALANINE AMINOTRANSFERASE 67 U/L (12-78); ALKALINE PHOSPHATASE 319 U/L (46-116); ANION GAP 9 mmol/L (8-16); ASPARTATE AMINOTRANSFERASE 161 U/L (15-37); BILIRUBIN,TOTAL 14.2 mg/dL (0.1-1.0); CALCIUM, TOTAL 7.8 mg/dL (8.8-10.5); CARBON DIOXIDE 23 mmol/L (22-29); CHLORIDE 104 mmol/L (98-107); CREATININE 0.79 mg/dL (0.60-1.30); GLOMERULAR FILTR. RATE CALC > 60 mL/min (>60); GLUCOSE,RANDOM 101 mg/dL (70-110); POTASSIUM 3.8 mmol/L (3.5-5.1); SODIUM SERUM 135 mmol/L (136-145); TOTAL PROTEIN, SERUM 5.8 g/dL (6.4-8.2); UREA NITROGEN, BLOOD 9 mg/dL (7-18)
[2024-10-06 07:18] LABS: BASOPHILS % (AUTO) 0.4 % (0.0-2.0); EOSINOPHILS % (AUTO) 4.1 % (1.0-6.0); HEMATOCRIT 37.6 % (41-53); LYMPHOCYTES # (AUTO) 0.9 K/uL (1.0-4.8); LYMPHOCYTES % (AUTO) 14.6 % (22.0-44.0); MEAN CORPUSCULAR HEMOGLOBIN 37.9 pg (26.0-34.0); MEAN CORPUSCULAR HGB CONC 34.7 G/dL (31.0-37.0); MEAN CORPUSCULAR VOLUME 109 fL (80-100); MONOCYTES # (AUTO) 0.8 K/uL (0.1-1.0); NEUTROPHILS # (AUTO) 4.3 K/uL (1.8-7.7); NEUTROPHILS % (AUTO) 67.9 % (40.0-70.0); PLATELET COUNT (AUTO) 66 K/uL (150-450); RED BLOOD CELL COUNT(AUTO) 3.45 MIL/uL (4.50-5.90); WHITE BLOOD COUNT (AUTO) 6.4 K/uL (4.5-11.0)
[2024-10-06 07:26] LABS: GLUCOMETER DEV NAME(LOC) 5N.2C; GLUCOSE,POINT OF CARE 93 MG/DL (70-110)
[2024-10-06 07:26] LABS: GLUCOMETER DEV NAME(LOC) 5N.2C; GLUCOSE,POINT OF CARE 143 MG/DL (70-110)
[2024-10-06 07:26] LABS: GLUCOMETER DEV NAME(LOC) 5N.2C; GLUCOSE,POINT OF CARE 153 MG/DL (70-110)
[2024-10-06 07:26] LABS: GLUCOMETER DEV NAME(LOC) 5N.2C; GLUCOSE,POINT OF CARE 108 MG/DL (70-110)
[2024-10-06 07:27] LABS: GLUCOMETER DEV NAME(LOC) 5N.2C; GLUCOSE,POINT OF CARE 219 MG/DL (70-110)
[2024-10-06 07:27] LABS: GLUCOMETER DEV NAME(LOC) 5S.2D; GLUCOSE,POINT OF CARE 101 MG/DL (70-110)
[2024-10-06 07:27] LABS: GLUCOMETER DEV NAME(LOC) 5N.2C; GLUCOSE,POINT OF CARE 198 MG/DL (70-110)
[2024-10-06 08:11] LABS: RBC MORPHOLOGY COMMENT ABNORMAL RBC MORPH
[2024-10-06 08:35] VITALS: BP 108/60; PULSE 67; RESP 19; TEMP 98.5; O2SAT 97
[2024-10-06] MEDS: LevETIRAcetam 500 MG TABLET PO SCH (11:32)
[2024-10-06] MEDS: PROPRANOLOL HCL 60 MG ER CAPSULE PO SCH (11:32)
[2024-10-06] MEDS: MULTIVITAMINS WITH MINERALS, THERAPEUTIC TABLET PO SCH (11:32)
[2024-10-06] MEDS: MetFORMIN HCL 500 MG TABLET PO SCH (11:32)
[2024-10-06 12:24] VITALS: BP 109/64; PULSE 70; RESP 18; TEMP 97.7; O2SAT 94
[2024-10-06 15:56] VITALS: BP 95/55; PULSE 56; RESP 17; TEMP 98.2; O2SAT 98
[2024-10-06] MEDS: LACTULOSE 20 GM/30 ML SOLUTION UDCUP PO SCH (17:31)
[2024-10-06] MEDS: SUCROSE PO SCH (17:31)
[2024-10-06] MEDS: CHOLESTYRAMINE PO SCH (17:31)
[2024-10-06 17:41] LABS: GLUCOMETER DEV NAME(LOC) 5N.2C; GLUCOSE,POINT OF CARE 127 MG/DL (70-110)
[2024-10-06 17:46] LABS: GLUCOMETER DEV NAME(LOC) 5S.2D; GLUCOSE,POINT OF CARE 108 MG/DL (70-110)
[2024-10-06] MEDS: URSODIOL 500 MG TABLET PO SCH (20:47)
[2024-10-06 21:11] VITALS: BP 101/58; PULSE 57; RESP 14; TEMP 98.2; O2SAT 99
[2024-10-07 01:01] LABS: GLUCOMETER DEV NAME(LOC) 5S.2D; GLUCOSE,POINT OF CARE 134 MG/DL (70-110)
[2024-10-07] MEDS ORDERED: FUROSEMIDE 40 MG TABLET PO SCH (09:00)
== END 2024-10-06 22:20 | DRG 432 ==
LOC: EMS 21:30 → EDH 09-30 00:35 → 5S 09-30 08:32
PROVIDERS: ADMIT Internal Medicine; ATTEND Internal Medicine
DX: K74.60 Unspecified cirrhosis of liver (principal); G93.41 Metabolic encephalopathy; D68.9 Coagulation defect, unspecified; I69.254 Hemiplegia and hemiparesis following other nontraumatic intracranial hemorrhage affecting left non-dominant side; K76.82 Hepatic encephalopathy; E11.9 Type 2 diabetes mellitus without complications; F10.10 Alcohol abuse, uncomplicated; K70.10 Alcoholic hepatitis without ascites; Y90.9 Presence of alcohol in blood, level not specified; Z83.3 Family history of diabetes mellitus; E87.6 Hypokalemia; Z79.899 Other long term (current) drug therapy
CPT/HCPCS: 70450; 70496; 70498; 76705; 80048; 80053; 80307; 81001; 82140; 82948; 82962; 84484; 85007; 85025; 85027; 85610; 85730; 93005; 99291; J2470; J7050